=== PATIENT | female | born 1975 | race Caucasian/White ===

== ENCOUNTER 2016-10-05 07:02 | Day surgery (SDC) | payer BC ==
[~2016-10-05 07:02] MED LIST: Lactated Ringers 1,000 ML IV SCH; Lidocaine 1%/Sod Bicarbonate in NS 8.4% 1 ML Syringe PRN; Sodium Chloride 0.9% 10 ML Syringe FLUSH PRN
[2016-10-05] MEDS ORDERED: Lidocaine 1% with EPINEPHrine 1:100,000 20 ML MDV ONE (08:07)
[2016-10-05] MEDS ORDERED: Sodium Chloride 0.9% 50 ML SDV ONE (08:07)
[2016-10-05] MEDS ORDERED: Midazolam 1 MG/ML 2 ML SDV ONE (08:49)
[2016-10-05] MEDS ORDERED: Propofol 200 MG/20 ML SDV ONE (08:49)
[2016-10-05] MEDS ORDERED: fentaNYL 250 MCG/5 ML SDV ONE (08:49)
[2016-10-05] MEDS ORDERED: Rocuronium 50 MG/5 ML Vial ONE (08:53)
[2016-10-05] MEDS ORDERED: Lidocaine 1% 6 ML ONE (08:53)
[2016-10-05] MEDS ORDERED: ceFAZolin 1 GM Vial ONE (09:20)
[2016-10-05] MEDS ORDERED: HYDROmorphone 1 MG/ML Syringe ONE (09:27)
[2016-10-05] MEDS ORDERED: Ondansetron 4 MG/2 ML SDV ONE (09:31)
[2016-10-05] MEDS ORDERED: Ketorolac 30 MG/ML SDV ONE (09:32)
--- NOTE | 2016-10-05 09:33 | PCM.PREANE ---
Preanesthetic Assessment - Procedure Proposed Procedure: Total Vaginal Hysterectomy - Anesthesia/Transfusion/Family Hx Anesthesia History: Prior Anesthesia Without Reaction Family History of Anesthesia Reaction: No - Review of Systems General: No Symptoms Pulmonary: No Symptoms Cardiovascular: No Symptoms Gastrointestinal: No symptoms Neurological: No Symptoms Other: Reports: Easy Bruising - Physical Assessment NPO Status Date: 10/04/16 NPO Status Time: 23:30 O2 Sat by Pulse Oximetry: 95 Respiratory Rate: 18 Vital Signs: Last Vital Signs Temp 36.9 C 10/05/16 08:25 Pulse 62 10/05/16 08:25 Resp 18 10/05/16 08:25 BP 123/45 L 10/05/16 08:25 Pulse Ox 95 10/05/16 08:25 Height: 1.6 m Weight: 75.75 kg ASA Class: 2 Mental Status: Alert & Oriented x3 Airway Class: Mallampati = 1 Dentition: Reports: Normal Dentition ( ) Thyro-Mental Finger Breadths: 3 Mouth Opening Finger Breadths: 3 ROM/Head Extension: Full Lungs: Clear to auscultation, Normal respiratory effort Cardiovascular: Regular Rate, Regular Rhythm, No Murmurs - Lab Values: Laboratory Last Values WBC 9.28 K/mm3 (3.98-10.04) 10/04/16 11:39 RBC 4.59 M/mm3 (3.98-5.22) 10/04/16 11:39 Hgb 14.3 gm/L (11.2-15.7) 10/04/16 11:39 Hct 41.5 % (34.1-44.9) 10/04/16 11:39 MCV 90.4 fl (79.4-94.8) 10/04/16 11:39 MCH 31.2 pg (25.6-32.2) 10/04/16 11:39 MCHC 34.5 g/dl (32.2-35.5) 10/04/16 11:39 RDW Std Deviation 45.1 fL (36.4-46.3) 10/04/16 11:39 Plt Count 333 K/mm3 (182-369) 10/04/16 11:39 MPV 9.5 fl (9.4-12.3) 10/04/16 11:39 Neut % (Auto) 59.7 % (34.0-71.1) 10/04/16 11:39 Lymph % (Auto) 28.9 % (19.3-51.7) 10/04/16 11:39 [place] % (Auto) 9.6 % (4.7-12.5) 10/04/16 11:39 Eos % (Auto) 1.4 (0.7-5.8) 10/04/16 11:39 Baso % (Auto) 0.3 % (0.1-1.2) 10/04/16 11:39 Neut # (Auto) 5.54 K/mm3 (1.56-6.13) 10/04/16 11:39 Lymph # (Auto) 2.68 K/mm3 (1.18-3.74) 10/04/16 11:39 [place] # (Auto) 0.89 K/mm3 (0.24-0.36) H 10/04/16 11:39 Eos # (Auto) 0.13 K/mm3 (0.04-0.36) 10/04/16 11:39 Baso # (Auto) 0.03 K/mm3 (0.01-0.08) 10/04/16 11:39 Urine Color Light yellow (Yellow) 10/04/16 11:39 Urine Appearance Clear (Clear) 10/04/16 11:39 Urine pH 6.0 (5.0-8.0) 10/04/16 11:39 Ur Specific [place] 1.010 (1.005-1.030) 10/04/16 11:39 Urine Protein Negative (Negative) 10/04/16 11:39 Urine Glucose (UA) Negative (Negative) 10/04/16 11:39 Urine Ketones Negative (Negative) 10/04/16 11:39 Urine Occult Blood Trace-lysed (Negative) H 10/04/16 11:39 Urine Nitrite Negative (Negative) 10/04/16 11:39 Urine Bilirubin Negative (Negative) 10/04/16 11:39 Urine Urobilinogen 0.2 (0.2-1.0) 10/04/16 11:39 Ur Leukocyte Esterase 1+ (Negative) H 10/04/16 11:39 Urine HCG, Qual Negative (NEGATIVE) 10/04/16 11:39 Blood Type A POSITIVE 10/04/16 11:39 Gel Antibody Screen Negative 10/04/16 11:39 - Allergies Allergies/Adverse Reactions: Allergies Allergy/AdvReac Type Severity Reaction Status Date / Time No Known Allergies Allergy Verified 10/05/16 09:03 - Acknowledgements Anesthesia Type Planned: General Anesthesia Pt an Appropriate Candidate for the Planned Anesthesia: Yes Alternatives and Risks of Anesthesia Discussed w Pt/Guardian: Yes Pt/Guardian Understands and Agrees with Anesthesia Plan: Yes PreAnesthesia Questionnaire HEENT History: Reports: Other (See Below) Other HEENT History: [place] teeth Cardiovascular History: Reports: None Respiratory History: Reports: None Genitourinary History: Reports: None [employer] History: Reports: , Therapeutic Other OB/BYN History: breast augmentation, dysmennorhea, elective , LGSIL cervix, vaginal herpes Neurological History: Reports: Migraines Psychiatric History: Reports: Anxiety, Depression - Infectious Disease History Infectious Disease History: Reports: Herpes - Past Surgical History HEENT Surgical History: Reports: Naso-Sinus Surgery GI Surgical History: Reports: Cholecystectomy Female Surgical History: Reports: Breast Implant - SUBSTANCE USE Smoking Status *Q: Current Every Day Smoker (smokes less than a ppd for 10 years. counselled pt on need to quit for her health) Tobacco Use Within Last Twelve Months: Cigarettes Days Per Week of Alcohol Use: 3 Number of Drinks Per Day: 2 Total Drinks Per Week: 6 Recreational Drug Use History: No - HOME MEDS Home Medications: Home Meds Cholecalciferol (Vitamin D3) [Vitamin D3] 2 tab PO DAILY 10/05/16 [History] Vitamin B Complex 2 tab PO DAILY 10/05/16 [History] Vitamin E 2 tab PO DAILY 10/05/16 [History] valACYclovir HCl [Valacyclovir] 1 tab PO DAILY 10/05/16 [History] - CURRENT (IN HOUSE) MEDS Current Meds: Current Medications Lactated Ringer's (Ringers, Lactated) 1,000 mls @ 125 mls/hr IV ASDIRECTED LOUANN Stop: 10/05/16 23:00 Last Admin: 10/05/16 08:45 Dose: 125 mls/hr Lidocaine/Sodium Bicarbonate (Buffered Lidocaine 1% In Ns 8.4%) 0.25 ml .XX ONETIME PRN PRN Reason: Prior to IV Start Stop: 10/05/16 18:00 Sodium Chloride (Saline Flush) 10 ml FLUSH ASDIRECTED PRN PRN Reason: Keep Vein Open Stop: 10/05/16 18:00 Discontinued Medications Cefazolin Sodium (Ancef) Confirm Administered Dose 2 gm .ROUTE .STK-MED ONE Stop: 10/05/16 09:21 Fentanyl (Sublimaze) Confirm Administered Dose 250 mcg .ROUTE .STK-MED ONE Stop: 10/05/16 08:50 Hydromorphone HCl (Dilaudid) Confirm Administered Dose 1 mg .ROUTE .STK-MED ONE Stop: 10/05/16 09:28 Lidocaine HCl (Xylocaine-Mpf 1%) Confirm Administered Dose 6 mls @ as directed .ROUTE .STK-MED ONE Stop: 10/05/16 08:54 Ketorolac Tromethamine (Toradol) Confirm Administered Dose 30 mg .ROUTE .STK- MED ONE Stop: 10/05/16 09:33 Lidocaine/Epinephrine (Xylocaine 1% With Epinephrine 1:100,000) Confirm Administered Dose 20 ml .ROUTE .STK-MED ONE Stop: 10/05/16 08:08 Midazolam HCl (Versed 1 Mg/Ml) Confirm Administered Dose 2 mg .ROUTE .STK-MED ONE Stop: 10/05/16 08:50 Ondansetron HCl (Zofran) Confirm Administered Dose 4 mg .ROUTE .STK-MED ONE Stop: 10/05/16 09:32 Propofol (Diprivan 20 Ml) Confirm Administered Dose 200 mg .ROUTE .STK-MED ONE Stop: 10/05/16 08:50 Rocuronium [place] (Zemuron) Confirm Administered Dose 50 mg .ROUTE .STK-MED ONE Stop: 10/05/16 08:54 Sodium Chloride (Normal Saline) Confirm Administered Dose 50 ml .ROUTE .STK-MED ONE Stop: 10/05/16 08:08
[2016-10-05] MEDS ORDERED: HYDROmorphone 0.5 MG/0.5 ML Syringe IVPUSH PRN (09:42)
[2016-10-05] MEDS ORDERED: fentaNYL 100 MCG/2 ML SDV IVPUSH PRN (09:42)
[2016-10-05] MEDS ORDERED: Neostigmine Methylsulfate 1 MG/ML 5 ML Syringe ONE (09:50)
[2016-10-05] MEDS ORDERED: Ondansetron 4 MG/2 ML SDV IVPUSH PRN (09:59)
[2016-10-05] MEDS ORDERED: Acetaminophen/oxyCODONE 325-5 MG Tab PO PRN (09:59)
[2016-10-05] MEDS ORDERED: Promethazine 6.25 MG in Sodium Chloride 0.9% 50 ML IV PRN (10:05)
--- NOTE | 2016-10-05 10:08 | PCM.OPNOTE ---
- General Post-Op/Procedure Note Date of Surgery/Procedure: 10/05/16 Operative Procedure(s): total vaginal hysterectomy with bilateral salpingectomy Findings: uterus is upper limits normal size. Fallopian tubes and ovaries were normal in appearance. Pre Op Diagnosis: dysmenorrhea, menorrhagia Post-Op Diagnosis: Same Anesthesia Technique: Spinal Other Anesthesia Type: local with lidocaine quarter percent with epinephrine Primary Surgeon: Arpan Elizabeth Secondary Surgeon: Jace Warner Anesthesia Provider: Darron Gupta Pathology: uterus, bilateral fallopian tubes in one specimen container Fluid Replacement, Intraop: 1,100 EBL in mLs: 10 Complications: None Condition: Good Free Text/Narrative:: surgery duration: 22 minutes Complications: None Specimens: Uterus, bilateral fallopian tubes in one container Procedure: The patient was placed in supine position on the operating table. General endotracheal anesthesia was accomplished. After positioning, and adequate prep and drape, the procedure was then performed. Sterile speculum was placed in the vagina and cervix was visualized. Cervix was injected with [ lidocaine quarter percent with epinephrine]. [20 cc] used. A full circumference incision was made in the cervical epithelium. The bladder was pushed well back off cervix. Posterior cul-de-sac was then entered sharply without problems. Left uterosacral was crossclamped with a LigaSure vessel closure system. The left uterosacral and then the right uterosacral ligament pedicles were developed using the LigaSure system. The anterior cul-de-sac was then entered without problems and the uterine vasculature, cardinal ligament and broad ligament then developed using LigaSure vessel closure system. The uterus was inverted at this time and upper broad ligament fallopian tube pedicles bilaterally were crossclamped and developed with the LigaSure system.. Specimen was totally removed. Left and right fallopian tube was normal in appearance.. Using LigaSure vessel closure system each of the tubes was then removed and sent with the specimen. The patient was found to be hemostatically intact at this time, both ovaries appeared normal and were left in place. A pursestring suture was and placed in the peritoneal cavity externalizing pedicles in case of bleeding. Vaginal cuff was closed with running locked suture of 0 Monocryl. Patient was returned to supine position and awakened from general endotracheal anesthesia. She tolerated the procedure was then left the operating room in satisfactory condition.
--- NOTE | 2016-10-05 10:10 | PCM.POSTAN ---
POST ANESTHESIA ASSESSMENT - MENTAL STATUS Mental Status: alert, oriented - VITAL SIGNS Pulse Rate: 61 SaO2: 97 Resp Rate: 8 Blood Pressure: 107/47 Temperature: 36.6 C - RESPIRATORY Respiratory Status: airway patent, O2 saturation stable, depressed resp rate - CARDIOVASCULAR CV Status: pulse rate WNL, blood pressure stable - GASTROINTESTINAL GI Status: no symptoms - PAIN Pain Score: 2 - POST OP HYDRATION Hydration Status: adequate & stable
--- NOTE | 2016-10-05 10:33 | PCM48HPAN ---
Post Anesthesia Note - EVALUATION WITHIN 48HRS OF ANESTHETIC Vital Signs in Normal Range: Yes Patient Participated in Evaluation: Yes Respiratory Function Stable: Yes Airway Patent: Yes Cardiovascular Function Stable: Yes Hydration Status Stable: Yes Pain Control Satisfactory: Yes Nausea and Vomiting Control Satisfactory: Yes Mental Status Recovered: Yes
[2016-10-05 11:57] VITALS: BP 106/59
== END 2016-10-05 11:50 | disposition home or self-care (01) ==
LOC: JD.SDS 07:02
PROVIDERS: ATTEND Obstetrics & Gynecology
PROC: 0UT97ZZ Resection of Uterus, Via Natural or Artificial Opening (ICD-10-PCS; principal; 2016-10-05)
PROC: 0UTC7ZZ Resection of Cervix, Via Natural or Artificial Opening (ICD-10-PCS; 2016-10-05)
PROC: 0UT77ZZ Resection of Bilateral Fallopian Tubes, Via Natural or Artificial Opening (ICD-10-PCS; 2016-10-05)
DX: N92.0 Excessive and frequent menstruation with regular cycle (principal); N87.0 Mild cervical dysplasia
CPT/HCPCS: 36415; 58262; 81003; 81025; 85025; 86850; 86900; 86901; 88307; A9270; J0690; J1170; J1885; J2250; J2405; J2710; J3010; J7120; 00944; J2704